=== PATIENT | male | born 1995 | race Caucasian/White ===

== ENCOUNTER 2019-05-07 17:07 | Emergency (ER) | payer OTHER ==
[~2019-05-07] VITALS: Ht 180.3 cm; Wt 81.2 kg
== END 2019-05-07 18:45 | disposition home or self-care (01) ==
LOC: ER 17:07
DX: S01.82XA Laceration with foreign body of other part of head, initial encounter (principal); W45.8XXA Other foreign body or object entering through skin, initial encounter; Y93.89 Activity, other specified; Y92.89 Other specified places as the place of occurrence of the external cause; Y99.8 Other external cause status

== ENCOUNTER 2019-08-02 04:03 | Emergency (ER) | payer OTHER ==
[~2019-08-02] VITALS: Ht 180.3 cm; Wt 81.6 kg
[2019-08-02] MEDS ORDERED: MOBIC15 MG PO (05:30)
[2019-08-02] MEDS ORDERED: MUPIROCIN22 GM TOP (05:30)
[2019-08-02] MEDS ORDERED: DUI500 PO (05:30)
== END 2019-08-02 05:44 | disposition home or self-care (01) ==
LOC: ER 04:03
DX: S90.112A Contusion of left great toe without damage to nail, initial encounter (principal); W22.8XXA Striking against or struck by other objects, initial encounter; Y93.89 Activity, other specified; Y92.69 Other specified industrial and construction area as the place of occurrence of the external cause; Y99.8 Other external cause status

== ENCOUNTER 2020-07-28 20:45 | Emergency (ER) | payer OTHER ==
[~2020-07-28] VITALS: Ht 180.3 cm; Wt 81.6 kg
[~2020-07-28 20:45] MED LIST: DUI500 PO; MOBIC15 MG PO; MUPIROCIN22 GM TOP
== END 2020-07-28 22:46 | disposition home or self-care (01) ==
LOC: ER 20:45
DX: G44.209 Tension-type headache, unspecified, not intractable (principal)